=== PATIENT | female | born 1940 | race Caucasian/White ===

== ENCOUNTER 2017-08-16 14:43 | Inpatient (IN) ==
[2017-08-16 15:35] LABS: URINE SOURCE VOIDED
[2017-08-16 15:35] LABS: MANUAL DIFF NEEDED? NO
--- NOTE | 2017-08-16 15:35 | Diag Imaging Result Doc PS360 ---
EXAM: ABDOMEN FLAT/UPRIGHT HISTORY: ABD PAIN / PANCREATITIS TECHNIQUE: Two views COMPARISON: None. FINDINGS: No free air beneath the diaphragm. Air-filled loops of bowel mid abdomen. No organomegaly. Prominent vascular calcifications. IMPRESSION: No acute abnormality Electronically signed by Bruno Perla 08/16/2017 3:33 PM
--- NOTE | 2017-08-16 15:48 | Diag Imaging Result Doc PS360 ---
EXAM: CT ABDOMEN/PELVIS W/O CONTRAST HISTORY: ABD PAIN / PANCREATITIS TECHNIQUE: CT abdomen and pelvis without contrast. Dose reduction protocol. COMPARISON: 03/03/2015 FINDINGS: There is an anterior abdominal wall hernia on the current exam which was not previously present. This measures 4 cm in diameter and contains a portion of the transverse colon. Questionable mild thickening to the wall of the transverse colon at the hernia site. The proximal loop is distended with air and fluid where is the distal to this the transverse colon is not distended. There are several stones within the gallbladder. No adjacent inflammation. No inflammation about the pancreas. No pancreatic calcifications or pseudocyst. No focal hepatic or splenic normality identified on this noncontrasted study. Normal adrenal glands. There are several nonobstructing renal stones. No hydronephrosis. There are bilateral renal cysts. The largest arises from the lower pole on the left measuring 3.6 cm. Prominent atherosclerosis. The urinary bladder is distended and appears normal. Normal uterus. No pelvic mass. Normal appendix. No abscess. IMPRESSION: 1.Development of an upper midline anterior abdominal wall hernia containing a portion of transverse colon which may be incarcerated and causing a partial obstruction. 2.No CT evidence of pancreatitis 3.Cholelithiasis 4.Bilateral nephrolithiasis as well as scattered renal cysts 5.Severe atherosclerosis 6.A preliminary report was called to Dr. Alvarez. Electronically signed by Bruno Perla 08/16/2017 3:46 PM
[2017-08-16 16:24] LABS: BASO% 0.2 % (0.0-0.8); EOS# 0.19 X1000 (0.0-0.7); EOS% 1.6 % (0.0-10.0); HEMATOCRIT 44.7 % (37.0-47.0); HEMOGLOBIN 14.9 g/dL (12.0-16.0); IMM GRAN# 0.02 X1000 (0.0-0.04); IMM GRAN% 0.2 % (0.0-0.5); LYMPH# 1.57 X1000 (1.2-3.4); LYMPH% 13.3 % (20.5-51.1); MCH 31.4 PG (27-31); MCHC 33.3 g/dL (33-37); MCV 94.1 FL (81-99); MONO% 4.2 % (1.7-9.3); MPV 8.9 FL (7.4-10.4); NEUT% 80.5 % (42.2-75.2); PLT 285 X1000 (130-400); RBC 4.75 XMIL (4.2-5.4)
[2017-08-16 16:31] LABS: BILIRUBIN URINE NEGATIVE (NEGATIVE); BLOOD URINE NEGATIVE (NEGATIVE); CLARITY CLEAR (CLEAR); COLOR YELLOW; GLUCOSE URINE NEGATIVE (NEGATIVE); LEUKOCYTES URINE TRACE (NEGATIVE); NITRITE URINE NEGATIVE (NEGATIVE); PH URINE 5.5; PROTEIN URINE NEGATIVE (NEGATIVE); SP GRAVITY URINE 1.015; UROBILINOGEN URINE 0.2 EU/dL (0.2-1.0)
[2017-08-16 16:34] LABS: URINE CAST GRANULAR PRESENT /LPF; URINE EPITHELIAL CELLS <10 /HPF (<10); URINE RBC <10 /HPF (<10); URINE SMALL ROUND CELLS TRANSITIONAL PRESENT; URINE WBC <10 /HPF (<10)
[2017-08-16 16:46] LABS: AGAP 15; ALBUMIN 4.3 g/dL (3.5-5.0); ALKALINE PHOSPHATASE 76 U/L (32-104); AMYLASE 63 U/L (20-200); BUN 23 mg/dL (8-22); CALCIUM 8.9 mg/dL (8.8-10.2); CHLORIDE 97 mmol/L (98-107); COSMO 277; GOT 12 U/L (10-30); GPT 9 U/L (10-36); LIPASE 12 U/L (13-60); POTASSIUM 3.6 mmol/L (3.5-5.1); SODIUM 137 mmol/L (136-145); TCO2 25 mmol/L (25-35); TOTAL BILIRUBIN 0.32 mg/dL (0.20-1.00); TOTAL PROTEIN 7.7 g/dL (6.3-8.3)
[2017-08-16] MEDS ORDERED: ZOFRAN IV PRN (17:51)
[2017-08-16] MEDS ORDERED: NUBAIN IV PRN (17:51)
[2017-08-16 18:44] LABS: INR 1.03; PROTIME 10.8 Seconds (9.2-11.7); PTT 26.6 Seconds (22.0-36.0)
[2017-08-16] MEDS: NS 1,000 ML IV SCH (18:47)
[2017-08-16] MEDS: PROTONIX IV SCH (18:47)
[2017-08-16] MEDS: SODIUM CHLORIDE 0.9% INJ SCH (18:47)
[2017-08-16] MEDS: DUONEB (A & A) INH SCH ×2 (19:00→22:33)
[2017-08-16] MEDS ORDERED: KLOR-CON PO ONE (19:06)
[2017-08-16] MEDS: PEPCID PO SCH (20:41)
[2017-08-16] MEDS: VALIUM PO SCH (20:42)
[2017-08-16] MEDS: LOTENSIN PO SCH (20:42)
--- NOTE | 2017-08-16 21:31 | EKG Report ---
Test Performed on : 08/16/2017 6:12:43 PM Test Reason : abd pain Blood Pressure : / mmHG Vent. Rate : 051 BPM Atrial Rate : 051 BPM P-R Int : 178 ms QRS Dur : 104 ms QT Int : 482 ms P-R-T Axes : 041 -11 -04 degrees QTc Int : 444 ms Sinus bradycardia. 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
[2017-08-16] MEDS: HUMALOG SUBQ SCH (21:53)
[2017-08-16] MEDS: ACCOLATE PO SCH (21:57)
[2017-08-17] MEDS: DILAUDID IV PRN ×4 (00:08→23:40)
[2017-08-17] MEDS: NS 1,000 ML IV SCH ×2 (00:09→05:09)
[2017-08-17] MEDS: DUONEB (A & A) INH SCH ×6 (03:26→22:49)
[2017-08-17 07:30] LABS: MANUAL DIFF NEEDED? NO
[2017-08-17 07:33] LABS: BASO% 0.3 % (0.0-0.8); EOS# 0.09 X1000 (0.0-0.7); EOS% 0.9 % (0.0-10.0); HEMATOCRIT 42.2 % (37.0-47.0); IMM GRAN# 0.02 X1000 (0.0-0.04); IMM GRAN% 0.2 % (0.0-0.5); LYMPH# 1.88 X1000 (1.2-3.4); LYMPH% 18.8 % (20.5-51.1); MCH 31.5 PG (27-31); MCHC 33.2 g/dL (33-37); MONO# 0.57 X1000 (0.11-0.59); MONO% 5.7 % (1.7-9.3); MPV 8.8 FL (7.4-10.4); NEUT% 74.1 % (42.2-75.2); PLT 241 X1000 (130-400); RBC 4.44 XMIL (4.2-5.4)
[2017-08-17 08:09] LABS: AGAP 15; ALBUMIN 3.4 g/dL (3.5-5.0); ALKALINE PHOSPHATASE 63 U/L (32-104); BUN 21 mg/dL (8-22); CALCIUM 8.4 mg/dL (8.8-10.2); CHLORIDE 101 mmol/L (98-107); COSMO 276; GOT 11 U/L (10-30); GPT 6 U/L (10-36); SODIUM 137 mmol/L (136-145); TCO2 21 mmol/L (25-35); TOTAL BILIRUBIN 0.43 mg/dL (0.20-1.00); TOTAL PROTEIN 6.2 g/dL (6.3-8.3)
[2017-08-17 08:22] LABS: POTASSIUM 4.9 mmol/L (3.5-5.1)
[2017-08-17] MEDS: LIPITOR PO SCH (08:58)
[2017-08-17] MEDS: LASIX PO SCH (08:58)
[2017-08-17] MEDS: IMDUR PO SCH (08:58)
[2017-08-17] MEDS: ARICEPT PO SCH (08:58)
[2017-08-17] MEDS: PEPCID PO SCH ×2 (08:58→22:02)
[2017-08-17] MEDS: TOPROL XL PO SCH (08:58)
[2017-08-17] MEDS: CELEXA PO SCH (08:58)
[2017-08-17] MEDS: MYSOLINE PO SCH (08:58)
[2017-08-17] MEDS: ACCOLATE PO SCH ×2 (08:59→22:01)
[2017-08-17] MEDS: LOTENSIN PO SCH ×2 (08:59→22:02)
[2017-08-17] MEDS ORDERED: PLAVIX PO SCH (09:00)
[2017-08-17] MEDS: VALIUM PO SCH ×2 (09:02→22:01)
--- NOTE | 2017-08-17 09:49 | Diag Imaging Result Doc PS360 ---
EXAM: ABDOMEN FLAT/UPRIGHT HISTORY: pain TECHNIQUE: Flat and upright abdomen COMMENT: There are extensive vascular calcifications. There may be calcifications in the renal arteries particularly on the left. The bowel gas pattern is unremarkable. Compared to 08/16/2017 there is been no appreciable change. IMPRESSION: Nonspecific abdomen. Electronically signed by Tomás Castaneda 08/17/2017 9:46 AM
[2017-08-17] MEDS: HUMALOG SUBQ SCH ×4 (13:59→23:03)
[2017-08-17] MEDS ORDERED: KEFZOL 1 GM/D5W 1 GM/50 ML IVPB IV ONE (16:28)
[2017-08-17] MEDS ORDERED: MIRALAX PO ONE (16:30)
[2017-08-17] MEDS: NON-FORMULARY BULK MED INH SCH (16:58)
[2017-08-17] MEDS: NICODERM PATCH TD SCH (18:21)
[2017-08-17] MEDS: SODIUM CHLORIDE 0.9% INJ SCH (18:22)
[2017-08-17] MEDS: PROTONIX IV SCH (18:22)
[2017-08-18] MEDS: DUONEB (A & A) INH SCH ×6 (03:30→23:06)
[2017-08-18] MEDS: HUMALOG SUBQ SCH ×4 (06:34→23:41)
[2017-08-18] MEDS: HUMULIN 70/30 SUBQ SCH ×2 (06:35→18:09)
[2017-08-18] MEDS ORDERED: KEFZOL 1 GM/D5W 1 GM/50 ML IVPB IV ONE (07:00)
[2017-08-18 07:47] LABS: AGAP 14; ALKALINE PHOSPHATASE 70 U/L (32-104); BUN 14 mg/dL (8-22); CALCIUM 9.3 mg/dL (8.8-10.2); CHLORIDE 102 mmol/L (98-107); COSMO 284; GOT 11 U/L (10-30); GPT 7 U/L (10-36); POTASSIUM 3.9 mmol/L (3.5-5.1); SODIUM 141 mmol/L (136-145); TCO2 25 mmol/L (25-35); TOTAL BILIRUBIN 0.54 mg/dL (0.20-1.00); TOTAL PROTEIN 6.7 g/dL (6.3-8.3)
[2017-08-18] MEDS: DILAUDID IV PRN ×3 (08:44→18:01)
[2017-08-18] MEDS ORDERED: MARCAINE 0.25% PF ONE (10:02)
[2017-08-18] MEDS ORDERED: ZEMURON ONE (10:05)
[2017-08-18] MEDS ORDERED: FENTANYL ONE (10:05)
[2017-08-18] MEDS ORDERED: XYLOCAINE-MPF 2% ONE (10:05)
[2017-08-18] MEDS ORDERED: QUELICIN (DOSE) ONE (10:06)
[2017-08-18] MEDS: IMDUR PO SCH (10:08)
[2017-08-18] MEDS: ACCOLATE PO SCH ×2 (10:08→23:40)
[2017-08-18] MEDS: LASIX PO SCH (10:08)
[2017-08-18] MEDS: MYSOLINE PO SCH (10:08)
[2017-08-18] MEDS: LIPITOR PO SCH (10:08)
[2017-08-18] MEDS: VALIUM PO SCH ×2 (10:08→23:42)
[2017-08-18] MEDS: TOPROL XL PO SCH ×2 (10:08→18:48)
[2017-08-18] MEDS: NICODERM PATCH TD SCH (10:08)
[2017-08-18] MEDS: ARICEPT PO SCH (10:08)
[2017-08-18] MEDS: PEPCID PO SCH ×2 (10:08→23:42)
[2017-08-18] MEDS: CELEXA PO SCH (10:08)
[2017-08-18] MEDS: LOTENSIN PO SCH ×2 (10:08→23:41)
[2017-08-18] MEDS ORDERED: KEFZOL 1 GM/D5W 1 GM/50 ML IVPB ONE (10:09)
[2017-08-18] MEDS ORDERED: DIPRIVAN 1% ONE (10:13)
[2017-08-18] MEDS ORDERED: ZOFRAN ONE (11:26)
[2017-08-18] MEDS ORDERED: DECADRON ONE (11:26)
[2017-08-18] MEDS ORDERED: NEOSTIGMINE ONE (11:34)
[2017-08-18] MEDS ORDERED: ROBINUL ONE (11:34)
[2017-08-18] MEDS: NON-FORMULARY BULK MED INH SCH (12:05)
[2017-08-18] MEDS: DILAUDID ONE (13:24)
[2017-08-18] MEDS ORDERED: INSULIN PEN NEEDLES ONE (13:28)
[2017-08-18] MEDS ORDERED: NORCO-7.5 PO PRN (14:04)
[2017-08-18] MEDS: PROTONIX IV SCH (18:11)
[2017-08-18] MEDS: SODIUM CHLORIDE 0.9% INJ SCH (18:11)
[2017-08-18] MEDS ORDERED: NS 500 ML ONE (23:12)
[2017-08-18] MEDS ORDERED: NS 500 ML IV ONE (23:16)
[2017-08-18] MEDS ORDERED: VANCOMYCIN IV PER PHARMACY MISC SCH (23:30)
[2017-08-18 23:31] LABS: BE -4.3 mmoll (-3.0-3.0); BLOOD TYPE ARTERIAL; DRAW SITE R BRACHIAL; PO2(98.6) 51 mmHg (60-100); SAMPLE BLOOD; SAO2 89.3 % (95.0-100.0); THB 14.1 g/dL (11.5-17.4); pH(98.6) 7.26 (7.35-7.45)
[2017-08-18 23:32] LABS: MODALITY CANNULA; PCO2(98.6) 52 mmHg (35-45)
[2017-08-19] MEDS ORDERED: VANCOMYCIN 1,800 MG in NS 250 ML IV ONE ×2
[2017-08-19 00:01] LABS: BASO% 0.1 % (0.0-0.8); EOS# 0.01 X1000 (0.0-0.7); EOS% 0.1 % (0.0-10.0); HEMATOCRIT 42.7 % (37.0-47.0); HEMOGLOBIN 13.7 g/dL (12.0-16.0); IMM GRAN# 0.03 X1000 (0.0-0.04); IMM GRAN% 0.2 % (0.0-0.5); LYMPH# 0.87 X1000 (1.2-3.4); LYMPH% 5.7 % (20.5-51.1); MANUAL DIFF NEEDED? YES; MCH 31.6 PG (27-31); MCHC 32.1 g/dL (33-37); MCV 98.4 FL (81-99); MONO# 1.02 X1000 (0.11-0.59); MONO% 6.6 % (1.7-9.3); MPV 8.8 FL (7.4-10.4); NEUT% 87.3 % (42.2-75.2); PLT 253 X1000 (130-400); RBC 4.34 XMIL (4.2-5.4)
[2017-08-19 00:13] LABS: LYMPHS 3 % (21-51); MONO 5 % (1-9)
[2017-08-19 00:23] LABS: ALBUMIN 3.7 g/dL (3.5-5.0); CALCIUM 8.2 mg/dL (8.8-10.2); POTASSIUM 4.9 mmol/L (3.5-5.1); TOTAL BILIRUBIN 0.47 mg/dL (0.20-1.00); TOTAL PROTEIN 6.7 g/dL (6.3-8.3)
[2017-08-19] MEDS: ZOSYN 3.375 GM in NS 50 ML IV SCH ×5 (00:42→23:09)
[2017-08-19] MEDS: DILAUDID IV PRN (01:41)
[2017-08-19] MEDS: DUONEB (A & A) INH SCH ×6 (02:50→23:25)
[2017-08-19] MEDS: OFIRMEV 1000 MG/ISOTONIC SOLN 1,000 MG/100 ML BOTTLE IV PRN ×3 (03:18→19:42)
[2017-08-19 05:00] LABS: BE -4.4 mmoll (-3.0-3.0); BLOOD TYPE ARTERIAL; DRAW SITE R BRACHIAL; METHB 1.7 % (0.0-1.5); O2(CT) 16.7 mL/dL (15.0-23.0); PCO2(98.6) 48 mmHg (35-45); PO2(98.6) 74 mmHg (60-100); SAMPLE BLOOD; SAO2 96.5 % (95.0-100.0); THB 12.8 g/dL (11.5-17.4); pH(98.6) 7.28 (7.35-7.45)
[2017-08-19 05:01] LABS: MODALITY BI PAP
[2017-08-19] MEDS: HUMALOG SUBQ SCH (06:22)
[2017-08-19] MEDS: NON-FORMULARY BULK MED INH SCH (07:31)
[2017-08-19] MEDS: DILAUDID ONE (07:32)
[2017-08-19 08:03] LABS: ALBUMIN 3.4 g/dL (3.5-5.0); POTASSIUM 4.5 mmol/L (3.5-5.1); TOTAL BILIRUBIN 0.49 mg/dL (0.20-1.00); TOTAL PROTEIN 6.2 g/dL (6.3-8.3)
[2017-08-19] MEDS: ARICEPT PO SCH (08:46)
[2017-08-19] MEDS: ACCOLATE PO SCH (08:46)
[2017-08-19] MEDS: IMDUR PO SCH (08:47)
[2017-08-19] MEDS: LIPITOR PO SCH (08:47)
[2017-08-19] MEDS: LASIX PO SCH (08:47)
[2017-08-19] MEDS: LOTENSIN PO SCH (08:47)
[2017-08-19] MEDS: MYSOLINE PO SCH (08:48)
[2017-08-19] MEDS: PEPCID PO SCH (08:49)
[2017-08-19] MEDS: VALIUM PO SCH (08:51)
[2017-08-19] MEDS: TOPROL XL PO SCH (08:51)
[2017-08-19] MEDS ORDERED: CELEXA PO SCH (09:00)
[2017-08-19] MEDS: HUMULIN 70/30 SUBQ SCH (09:25)
[2017-08-19] MEDS: NICODERM PATCH TD SCH (09:29)
[2017-08-19] MEDS: LOPRESSOR IV SCH ×3 (09:29→19:44)
[2017-08-19 09:38] LABS: URINE MICRO REVIEW NEEDED? NO; URINE SOURCE CATH
[2017-08-19 09:41] LABS: BILIRUBIN URINE NEGATIVE (NEGATIVE); BLOOD URINE SMALL (NEGATIVE); COLOR YELLOW; GLUCOSE URINE TRACE mg/dL (NEGATIVE); LEUKOCYTES URINE MODERATE (NEGATIVE); NITRITE URINE NEGATIVE (NEGATIVE); PH URINE 5.5; PROTEIN URINE 30 mg/dL (NEGATIVE); SP GRAVITY URINE 1.019; TURBIDITY URINE HAZY (CLEAR); UROBILINOGEN URINE NORMAL (NORMAL)
[2017-08-19 09:42] LABS: UR EPITHELIAL CELLS <10 /HPF (<10); URINE BACTERIA NEGATIVE /HPF; URINE CULTURE NEEDED? YES; URINE RBC <10 /HPF (<10)
--- NOTE | 2017-08-19 09:50 | Diag Imaging Result Doc PS360 ---
EXAM: CHEST-PORTABLE INDICATION: resp. Distress TECHNIQUE: One view COMPARISON: 04/02/2015 FINDINGS: Inspiration is suboptimal. The lungs are grossly clear. There is no discrete pleural fluid collection or pneumothorax. The cardiomediastinal silhouette and central vasculature are grossly unremarkable. IMPRESSION: Low lung volumes but no definite acute pathology, otherwise, by plain radiograph. Electronically signed by Shade Norris 08/19/2017 9:48 AM
[2017-08-19] MEDS: HUMULIN R SUBQ SCH ×3 (11:29→20:41)
[2017-08-19 14:18] LABS: CK INDEX 1.3 (0.0-2.5); CK-MB 13.31 ng/mL (0.0-5.0)
[2017-08-19] MEDS: HEPARIN SUBQ SCH ×2 (14:30→20:40)
[2017-08-19] MEDS: SODIUM CHLORIDE 0.9% INJ SCH (17:34)
[2017-08-19] MEDS: PROTONIX IV SCH (17:34)
[2017-08-19 18:54] LABS: CK-MB 10.54 ng/mL (0.0-5.0)
[2017-08-20] MEDS ORDERED: VANCOMYCIN 1,250 MG in NS 250 ML IV SCH (01:00)
[2017-08-20] MEDS: LOPRESSOR IV SCH ×4 (03:23→21:11)
[2017-08-20] MEDS: DUONEB (A & A) INH SCH ×6 (03:30→23:33)
[2017-08-20] MEDS: ZOSYN 3.375 GM in NS 50 ML IV SCH ×4 (05:28→23:55)
[2017-08-20] MEDS: HEPARIN SUBQ SCH ×3 (06:21→21:11)
[2017-08-20] MEDS: HUMULIN R SUBQ SCH ×4 (06:49→21:00)
[2017-08-20] MEDS: NICODERM PATCH TD SCH (08:06)
[2017-08-20] MEDS ORDERED: BLISTEX MEDICATED BERRY LIP BALM TOP PRN (08:11)
[2017-08-20 08:44] LABS: CK INDEX 0.9 (0.0-2.5); CK-MB 14.61 ng/mL (0.0-5.0)
[2017-08-20 10:01] LABS: AGAP 15; ALBUMIN 3.3 g/dL (3.5-5.0); ALKALINE PHOSPHATASE 59 U/L (32-104); BUN 16 mg/dL (8-22); CALCIUM 8.6 mg/dL (8.8-10.2); CHLORIDE 101 mmol/L (98-107); COSMO 285; GOT 36 U/L (10-30); GPT 12 U/L (10-36); POTASSIUM 4.2 mmol/L (3.5-5.1); SODIUM 140 mmol/L (136-145); TCO2 24 mmol/L (25-35); TOTAL PROTEIN 6.2 g/dL (6.3-8.3)
[2017-08-20 10:09] LABS: BASO% 0.3 % (0.0-0.8); EOS# 0.11 X1000 (0.0-0.7); EOS% 0.9 % (0.0-10.0); HEMATOCRIT 40.1 % (37.0-47.0); HEMOGLOBIN 12.8 g/dL (12.0-16.0); IMM GRAN# 0.02 X1000 (0.0-0.04); IMM GRAN% 0.2 % (0.0-0.5); LYMPH# 0.84 X1000 (1.2-3.4); LYMPH% 7.2 % (20.5-51.1); MANUAL DIFF NEEDED? YES; MCH 31.3 PG (27-31); MCHC 31.9 g/dL (33-37); MONO# 0.33 X1000 (0.11-0.59); MONO% 2.8 % (1.7-9.3); MPV 9.4 FL (7.4-10.4); NEUT% 88.6 % (42.2-75.2); PLT 198 X1000 (130-400); RBC 4.09 XMIL (4.2-5.4)
[2017-08-20] MEDS: ASPIRIN PR SCH (10:51)
[2017-08-20 12:01] LABS: EOS 4 % (1-10); LYMPHS 6 % (21-51); MONO 2 % (1-9)
--- NOTE | 2017-08-20 12:26 | ECHO REPORT ---
ORDER DATE: 08/19/2017 INTERPRETING PHYSICIAN: Dr. Golden REQUESTING PHYSICIAN: Dr. Alvarez is her primary doctor, and Dr. Crawley is covering for him. CLINICAL INDICATIONS: This is a 77-year-old female status post abdominal surgery, laparotomy, bowel obstruction. Definity was used to opacify the left ventricle and better assess LV function. M-MODE MEASUREMENTS: Right ventricle: 3.3 cm. Left ventricle end diastole: 4.5 cm. Left ventricle end systole: 3.5 cm. Posterior wall: 0.9 cm. Interventricular septum: 1.1 cm. Left atrium: 3.3 cm. Aortic root: cm. SUMMARY OF 2-DIMENSIONAL IMAGIN. Left ventricular function is mildly impaired, visually is in the order of 50% . 2. The true apex is dyskinetic. The distal septal wall, the true apex and the distal lateral wall are all akinetic to dyskinetic. This was well demonstrated by administration of intravenous Definity. 3. The left atrium is not dilated. 4. The right ventricle appears to be normal in size and function. 5. Mitral valve shows mild degree of regurgitation. 6. Pulse wave Doppler of mitral inflow shows reversal of the E and A wave. 7. Tissue Doppler of septal and lateral mitral annulus averages 5.5 cm. That indicates impaired left ventricular relaxation. 8. Tricuspid valve shows mild degree of regurgitation. 9. The pulmonary pressure is elevated and is estimated at 75 mmHg. 10.Pulmonic valve looks normal. 11.The color flow mapping of the mitral valve indicates degree of regurgitation. 12.The aortic valve opens normally with mild degree of regurgitation. 13.There is no pericardial effusion, mass or thrombus. CONCLUSIONS: This echocardiographic study shows: 1. Mildly impaired left ventricular systolic function. Ejection fraction is estimated at 45% with posterior wall hypokinesis, basal inferior hypokinesis and akinesis to dyskinesis of the apical septum ,the distal lateral wall and the true apex. That would be consistent with a new ischemic area involving the territory of the mid- distal LAD . evaluate the left ventricular contractility. 2. There is impaired left ventricular relaxation. 3. There is significant pulmonary hypertension estimated at 75 mmHg. 4. The aortic, mitral and tricuspid valves showed very mild degree of regurgitation. Clinical correlation is strongly recommended. cc: MD Lisa Wiley MD Bharat K. Vakharia, MD [facility]
[2017-08-20] MEDS: DILAUDID IV PRN (13:57)
[2017-08-20] MEDS: PROTONIX IV SCH (17:54)
[2017-08-20] MEDS: SODIUM CHLORIDE 0.9% INJ SCH (17:54)
[2017-08-20] MEDS: VANCOMYCIN 1,000 MG in NS 250 ML IV SCH (23:55)
[2017-08-21] MEDS: DUONEB (A & A) INH SCH ×6 (02:56→23:13)
[2017-08-21] MEDS: LOPRESSOR IV SCH ×4 (03:30→20:30)
[2017-08-21] MEDS: ZOSYN 3.375 GM in NS 50 ML IV SCH ×4 (04:39→21:59)
[2017-08-21] MEDS: HEPARIN SUBQ SCH ×3 (06:00→20:31)
[2017-08-21] MEDS: HUMULIN R SUBQ SCH ×4 (06:24→20:28)
--- NOTE | 2017-08-21 06:44 | EKG Report ---
Test Performed on : 08/19/2017 02:23:37 AM Test Reason : TACHYCARDIA Blood Pressure : / mmHG Vent. Rate : 121 BPM Atrial Rate : 121 BPM P-R Int : 176 ms QRS Dur : 094 ms QT Int : 306 ms P-R-T Axes : 060 -21 046 degrees QTc Int : 434 ms Sinus tachycardia. Inferior infarct (cited on or before 02-APR-2015) Nonspecific ST abnormality Cannot rule out Anterior infarct (cited on or before 02-APR-2015) Abnormal ECG When compared with ECG of 19-AUG-2017 02:05, (Unconfirmed) ST less elevated in Inferior leads Confirmed by Paco Hawkins MD ([id number]) on 08/21/2017 7:59:06 AM
--- NOTE | 2017-08-21 06:44 | EKG Report ---
Test Performed on : 08/19/2017 12:50:31 PM Test Reason : No Order in [place] Blood Pressure : / mmHG Vent. Rate : 087 BPM Atrial Rate : 089 BPM P-R Int : 000 ms QRS Dur : 096 ms QT Int : 334 ms P-R-T Axes : 000 011 083 degrees QTc Int : 401 ms Normal sinus rhythm. Inferior infarct (cited on or before 02-APR-2015) Cannot rule out ACUTE ND / STEMI Consider right ventricular involvement in acute inferior infarct Nonspecific T wave abnormality Lateral leads Abnormal ECG When compared with ECG of 19-AUG-2017 02:23, (Unconfirmed) Nonspecific T wave abnormality now evident in Lateral leads Confirmed by Ross MCDONALD, Paco ([id number]) on 08/21/2017 8:04:33 AM
--- NOTE | 2017-08-21 06:45 | EKG Report ---
Test Performed on : 08/20/2017 07:20:03 AM Test Reason : No Order in [employer] Blood Pressure : / mmHG Vent. Rate : 080 BPM Atrial Rate : 080 BPM P-R Int : 162 ms QRS Dur : 096 ms QT Int : 428 ms P-R-T Axes : 050 012 156 degrees QTc Int : 493 ms Normal sinus rhythm. Inferior infarct (cited on or before 02-APR-2015) ST \T\ Marked T wave abnormality, consider anterolateral ischemia Abnormal ECG When compared with ECG of 19-AUG-2017 12:50, (Unconfirmed) Significant changes have occurred Confirmed by Geraldo MCDONALD, Jose Stevens ([id number]) on 08/21/2017 5:00:00 PM
--- NOTE | 2017-08-21 06:45 | EKG Report ---
Test Performed on : 08/20/2017 09:31:35 AM Test Reason : No Order in [place] Blood Pressure : / mmHG Vent. Rate : 082 BPM Atrial Rate : 082 BPM P-R Int : 160 ms QRS Dur : 102 ms QT Int : 444 ms P-R-T Axes : 049 -18 152 degrees QTc Int : 518 ms Normal sinus rhythm. Inferior infarct (cited on or before 02-APR-2015) Anterior infarct , age undetermined ST \T\ Marked T wave abnormality, consider lateral ischemia Prolonged QT Abnormal ECG When compared with ECG of 20-AUG-2017 07:20, (Unconfirmed) No significant change was found Confirmed by Geraldo MCDONALD, Jose Stevens ([id number]) on 08/21/2017 5:00:05 PM
[2017-08-21 07:31] LABS: MANUAL DIFF NEEDED? NO
[2017-08-21 07:33] LABS: BASO% 0.3 % (0.0-0.8); EOS# 0.12 X1000 (0.0-0.7); EOS% 1.1 % (0.0-10.0); HEMATOCRIT 37.1 % (37.0-47.0); IMM GRAN# 0.02 X1000 (0.0-0.04); IMM GRAN% 0.2 % (0.0-0.5); LYMPH# 1.46 X1000 (1.2-3.4); LYMPH% 13.4 % (20.5-51.1); MCH 31.3 PG (27-31); MCHC 32.3 g/dL (33-37); MCV 96.9 FL (81-99); MONO% 7.3 % (1.7-9.3); NEUT% 77.7 % (42.2-75.2); PLT 208 X1000 (130-400); RBC 3.83 XMIL (4.2-5.4)
--- NOTE | 2017-08-21 07:35 | EKG Report ---
Test Performed on : 08/21/2017 07:01:06 AM Test Reason : subendocardial ischemia/non ST [place] Blood Pressure : / mmHG Vent. Rate : 078 BPM Atrial Rate : 078 BPM P-R Int : 144 ms QRS Dur : 104 ms QT Int : 446 ms P-R-T Axes : -06 -04 171 degrees QTc Int : 508 ms Normal sinus rhythm. Inferior infarct (cited on or before 02-APR-2015) Marked T wave abnormality, consider anterolateral ischemia Abnormal ECG When compared with ECG of 20-AUG-2017 09:31, (Unconfirmed) No significant change was found Confirmed by Geraldo MCDONALD, Jose Stevens ([id number]) on 08/21/2017 5:00:40 PM
[2017-08-21 07:54] LABS: INR 1.04
[2017-08-21] MEDS ORDERED: NICODERM PATCH TD SCH (08:02)
[2017-08-21] MEDS ORDERED: NS 250 ML ONE (08:05)
[2017-08-21 08:07] LABS: AGAP 13; ALBUMIN 3.4 g/dL (3.5-5.0); ALKALINE PHOSPHATASE 57 U/L (32-104); BUN 15 mg/dL (8-22); CALCIUM 8.8 mg/dL (8.8-10.2); CHLORIDE 101 mmol/L (98-107); COSMO 283; GOT 22 U/L (10-30); GPT 11 U/L (10-36); POTASSIUM 4.1 mmol/L (3.5-5.1); SODIUM 140 mmol/L (136-145); TCO2 26 mmol/L (25-35); TOTAL BILIRUBIN 0.53 mg/dL (0.20-1.00); TOTAL PROTEIN 6.8 g/dL (6.3-8.3)
[2017-08-21 08:26] LABS: CK PROFILE 618 U/L (24-173)
[2017-08-21 08:42] LABS: CK INDEX 1.1 (0.0-2.5); CK-MB 6.63 ng/mL (0.0-5.0)
[2017-08-21] MEDS: ASPIRIN PR SCH (09:45)
[2017-08-21] MEDS: APRESOLINE PO SCH ×3 (09:45→16:18)
[2017-08-21] MEDS: ISORDIL PO SCH ×3 (09:45→16:18)
[2017-08-21] MEDS: NICODERM PATCH TD SCH (12:19)
[2017-08-21] MEDS: SODIUM CHLORIDE 0.9% INJ SCH (17:10)
[2017-08-21] MEDS: PROTONIX IV SCH (17:10)
[2017-08-22] MEDS: LOPRESSOR IV SCH ×4 (02:06→20:38)
[2017-08-22] MEDS: DUONEB (A & A) INH SCH ×6 (02:45→23:20)
[2017-08-22] MEDS: HEPARIN SUBQ SCH ×3 (04:39→20:39)
[2017-08-22] MEDS: ZOSYN 3.375 GM in NS 50 ML IV SCH ×4 (04:39→23:26)
[2017-08-22] MEDS: DILAUDID IV PRN ×2 (06:19→17:52)
[2017-08-22] MEDS: HUMULIN R SUBQ SCH ×4 (06:20→20:39)
--- NOTE | 2017-08-22 06:37 | EKG Report ---
Test Performed on : 08/22/2017 05:43:20 AM Test Reason : subendocardial ischemia/non ST [place] Blood Pressure : / mmHG Vent. Rate : 072 BPM Atrial Rate : 072 BPM P-R Int : 154 ms QRS Dur : 096 ms QT Int : 454 ms P-R-T Axes : 024 006 118 degrees QTc Int : 497 ms Normal sinus rhythm. with sinus arrhythmia. Inferior infarct (cited on or before 02-APR-2015) Cannot rule out Anterior infarct , age undetermined T wave abnormality, consider lateral ischemia Abnormal ECG When compared with ECG of 21-AUG-2017 07:01, T wave inversion less evident in Lateral leads Confirmed by Geraldo MCDONALD, Jose Stevens ([id number]) on 08/23/2017 9:57:34 AM
[2017-08-22] MEDS: ISORDIL PO SCH ×3 (08:50→17:52)
[2017-08-22] MEDS: APRESOLINE PO SCH ×3 (08:50→17:52)
[2017-08-22] MEDS: ASPIRIN PO SCH (08:50)
[2017-08-22] MEDS: NICODERM PATCH TD SCH (08:50)
[2017-08-22] MEDS: SODIUM CHLORIDE 0.9% INJ SCH (17:52)
[2017-08-22] MEDS: PROTONIX IV SCH (17:52)
[2017-08-22] MEDS: VANCOMYCIN 1,000 MG in NS 250 ML IV SCH (23:27)
[2017-08-23] MEDS: DUONEB (A & A) INH SCH ×6 (03:25→23:52)
[2017-08-23] MEDS: LOPRESSOR IV SCH ×4 (04:44→22:28)
[2017-08-23 04:59] LABS: MANUAL DIFF NEEDED? NO
[2017-08-23 05:02] LABS: BASO% 0.4 % (0.0-0.8); EOS# 0.38 X1000 (0.0-0.7); HEMOGLOBIN 11.5 g/dL (12.0-16.0); IMM GRAN# 0.05 X1000 (0.0-0.04); IMM GRAN% 0.5 % (0.0-0.5); LYMPH# 1.25 X1000 (1.2-3.4); LYMPH% 13.3 % (20.5-51.1); MCH 31.4 PG (27-31); MCHC 32.9 g/dL (33-37); MCV 95.6 FL (81-99); MONO# 0.91 X1000 (0.11-0.59); MONO% 9.7 % (1.7-9.3); MPV 10.2 FL (7.4-10.4); NEUT% 72.1 % (42.2-75.2); PLT 129 X1000 (130-400); RBC 3.66 XMIL (4.2-5.4)
[2017-08-23 05:02] LABS: ALLEN TEST YES; BE 2.8 mmoll (-3.0-3.0); BLOOD TYPE ARTERIAL; DRAW SITE R RADIAL; METHB 1.4 % (0.0-1.5); PCO2(98.6) 34 mmHg (35-45); PO2(98.6) 152 mmHg (60-100); SAMPLE BLOOD; SAO2 99.4 % (95.0-100.0); THB 11.6 g/dL (11.5-17.4); pH(98.6) 7.49 (7.35-7.45)
[2017-08-23 05:03] LABS: MODALITY CANNULA
[2017-08-23 05:26] LABS: AGAP 15; ALBUMIN 3.1 g/dL (3.5-5.0); ALKALINE PHOSPHATASE 56 U/L (32-104); BUN 12 mg/dL (8-22); CHLORIDE 99 mmol/L (98-107); COSMO 280; GOT 14 U/L (10-30); GPT 12 U/L (10-36); MAGNESIUM 1.8 mg/dL (1.5-2.7); POTASSIUM 3.9 mmol/L (3.5-5.1); SODIUM 138 mmol/L (136-145); TCO2 24 mmol/L (25-35); TOTAL BILIRUBIN 0.65 mg/dL (0.20-1.00); TOTAL PROTEIN 6.2 g/dL (6.3-8.3)
[2017-08-23] MEDS: ZOSYN 3.375 GM in NS 50 ML IV SCH ×2 (06:10→12:30)
[2017-08-23] MEDS: HEPARIN SUBQ SCH ×3 (06:10→20:18)
[2017-08-23] MEDS: HUMULIN R SUBQ SCH ×4 (06:15→20:18)
--- NOTE | 2017-08-23 06:26 | EKG Report ---
Test Performed on : 08/23/2017 05:41:58 AM Test Reason : subendocardial ischemia/non ST [place] Blood Pressure : / mmHG Vent. Rate : 081 BPM Atrial Rate : 081 BPM P-R Int : 152 ms QRS Dur : 102 ms QT Int : 426 ms P-R-T Axes : 025 -23 055 degrees QTc Int : 494 ms Normal sinus rhythm. Minimal voltage criteria for LVH, may be normal variant Inferior infarct (cited on or before 02-APR-2015) T wave abnormality, consider anterolateral ischemia Abnormal ECG When compared with ECG of 22-AUG-2017 05:43, (Unconfirmed) No significant change was found Confirmed by Geraldo MCDONALD, Jose Stevens ([id number]) on 08/23/2017 10:06:09 AM
[2017-08-23] MEDS: APRESOLINE PO SCH ×3 (09:10→16:50)
[2017-08-23] MEDS: NICODERM PATCH TD SCH (09:10)
[2017-08-23] MEDS: ISORDIL PO SCH ×3 (09:11→16:50)
[2017-08-23] MEDS: ASPIRIN PO SCH (09:11)
[2017-08-23] MEDS: ATIVAN IV PRN (09:23)
[2017-08-23] MEDS: DILAUDID IV PRN (12:36)
[2017-08-23] MEDS: NORCO-10 PO PRN ×2 (15:21→22:27)
[2017-08-23] MEDS: PROTONIX IV SCH ×2 (16:50→17:27)
[2017-08-23] MEDS: SODIUM CHLORIDE 0.9% INJ SCH ×2 (16:51→17:26)
[2017-08-24] MEDS: DUONEB (A & A) INH SCH ×6 (03:53→22:53)
[2017-08-24] MEDS: NORCO-10 PO PRN ×3 (05:14→18:44)
[2017-08-24] MEDS: HEPARIN SUBQ SCH ×3 (05:15→20:21)
[2017-08-24] MEDS: LOPRESSOR IV SCH (05:15)
[2017-08-24] MEDS: HUMULIN R SUBQ SCH ×4 (06:25→20:23)
[2017-08-24] MEDS ORDERED: INSULIN PEN NEEDLES ONE (08:34)
[2017-08-24] MEDS ORDERED: TOPROL XL PO SCH (09:00)
[2017-08-24] MEDS: ISORDIL PO SCH ×3 (09:11→17:15)
[2017-08-24] MEDS: TOPROL XL PO SCH ×2 (09:11→20:22)
[2017-08-24] MEDS: ASPIRIN PO SCH (09:11)
[2017-08-24] MEDS: APRESOLINE PO SCH ×3 (09:11→17:15)
[2017-08-24] MEDS: LANTUS SUBQ SCH (09:12)
[2017-08-24] MEDS: ATIVAN IV PRN (09:18)
[2017-08-24] MEDS: NICODERM PATCH TD SCH (10:06)
[2017-08-24] MEDS: PROTONIX IV SCH (17:15)
[2017-08-24] MEDS: SODIUM CHLORIDE 0.9% INJ SCH (17:15)
[2017-08-25] MEDS: NORCO-10 PO PRN ×4 (00:32→23:03)
[2017-08-25] MEDS: DUONEB (A & A) INH SCH ×6 (03:09→22:42)
[2017-08-25 04:34] LABS: MANUAL DIFF NEEDED? NO
[2017-08-25 04:42] LABS: BASO% 0.2 % (0.0-0.8); EOS# 0.43 X1000 (0.0-0.7); EOS% 3.4 % (0.0-10.0); HEMATOCRIT 34.7 % (37.0-47.0); HEMOGLOBIN 11.4 g/dL (12.0-16.0); IMM GRAN# 0.07 X1000 (0.0-0.04); IMM GRAN% 0.6 % (0.0-0.5); LYMPH# 1.43 X1000 (1.2-3.4); LYMPH% 11.3 % (20.5-51.1); MCH 31.5 PG (27-31); MCHC 32.9 g/dL (33-37); MCV 95.9 FL (81-99); MONO# 0.97 X1000 (0.11-0.59); MONO% 7.6 % (1.7-9.3); MPV 9.6 FL (7.4-10.4); NEUT% 76.9 % (42.2-75.2); PLT 199 X1000 (130-400); RBC 3.62 XMIL (4.2-5.4)
[2017-08-25 05:07] LABS: AGAP 12; ALBUMIN 3.2 g/dL (3.5-5.0); ALKALINE PHOSPHATASE 70 U/L (32-104); BUN 11 mg/dL (8-22); CALCIUM 8.8 mg/dL (8.8-10.2); CHLORIDE 96 mmol/L (98-107); COSMO 277; GOT 20 U/L (10-30); GPT 22 U/L (10-36); POTASSIUM 3.7 mmol/L (3.5-5.1); SODIUM 136 mmol/L (136-145); TCO2 28 mmol/L (25-35); TOTAL BILIRUBIN 0.66 mg/dL (0.20-1.00); TOTAL PROTEIN 6.5 g/dL (6.3-8.3)
[2017-08-25] MEDS: HEPARIN SUBQ SCH ×3 (06:05→20:46)
[2017-08-25] MEDS: HUMULIN R SUBQ SCH ×4 (06:06→20:47)
[2017-08-25] MEDS ORDERED: POTASSIUM CHLORIDE 20% LIQUID PO ONE (07:26)
[2017-08-25] MEDS ORDERED: LASIX IV ONE (07:26)
[2017-08-25] MEDS: ATIVAN IV PRN ×2 (08:27→20:55)
[2017-08-25] MEDS: NICODERM PATCH TD SCH (08:28)
[2017-08-25] MEDS: ISORDIL PO SCH ×3 (08:28→17:00)
[2017-08-25] MEDS: TOPROL XL PO SCH ×2 (08:28→20:46)
[2017-08-25] MEDS: ALDACTONE PO SCH (08:28)
[2017-08-25] MEDS: LANTUS SUBQ SCH (08:29)
[2017-08-25] MEDS: APRESOLINE PO SCH ×3 (08:29→16:56)
[2017-08-25] MEDS: ASPIRIN PO SCH (08:29)
[2017-08-25] MEDS: MYCOSTATIN SUSP PO SCH ×4 (09:16→23:02)
[2017-08-25] MEDS: PROTONIX IV SCH (16:59)
[2017-08-25] MEDS: SODIUM CHLORIDE 0.9% INJ SCH (16:59)
[2017-08-26] MEDS: DUONEB (A & A) INH SCH ×6 (02:50→23:05)
[2017-08-26] MEDS: HUMULIN R SUBQ SCH ×4 (06:34→21:18)
[2017-08-26] MEDS: ATIVAN IV PRN ×2 (06:34→18:26)
[2017-08-26] MEDS: NORCO-10 PO PRN ×3 (06:34→18:27)
[2017-08-26] MEDS: HEPARIN SUBQ SCH ×3 (06:34→21:17)
--- NOTE | 2017-08-26 08:01 | Diag Imaging Result Doc PS360 ---
CHEST-PORTABLE - 08/26/2017 INDICATION: abnormal exam TECHNIQUE: COMPARISON: 08/19/2017 FINDINGS: There is a new right PICC line in good position with the catheter tip at the cavoatrial junction. Stable severely low lung volumes with central and bibasilar crowding. Grossly stable nonspecific atelectasis or infiltrates in the bases. Heart size remains top normal. IMPRESSION: New PICC line, otherwise no change from prior. Electronically signed by Vinicius Starkey 08/26/2017 7:58 AM
[2017-08-26] MEDS: APRESOLINE PO SCH ×3 (08:28→16:40)
[2017-08-26] MEDS: TOPROL XL PO SCH ×2 (08:28→21:17)
[2017-08-26] MEDS: LANTUS SUBQ SCH (08:28)
[2017-08-26] MEDS: ALDACTONE PO SCH (08:28)
[2017-08-26] MEDS: ASPIRIN PO SCH (08:28)
[2017-08-26] MEDS: NICODERM PATCH TD SCH (08:28)
[2017-08-26] MEDS: ISORDIL PO SCH ×3 (08:28→16:40)
[2017-08-26] MEDS: MYCOSTATIN SUSP PO SCH ×4 (08:29→21:19)
[2017-08-26] MEDS: PROTONIX IV SCH (17:02)
[2017-08-26] MEDS: SODIUM CHLORIDE 0.9% INJ SCH (17:02)
[2017-08-27] MEDS: NORCO-10 PO PRN ×4 (00:23→22:41)
[2017-08-27] MEDS: ATIVAN IV PRN ×3 (00:23→15:51)
[2017-08-27] MEDS: DUONEB (A & A) INH SCH ×6 (03:14→22:43)
[2017-08-27] MEDS: HUMULIN R SUBQ SCH ×4 (06:09→21:13)
[2017-08-27] MEDS: HEPARIN SUBQ SCH ×3 (06:09→21:04)
[2017-08-27] MEDS: ALDACTONE PO SCH (08:14)
[2017-08-27] MEDS: TOPROL XL PO SCH ×2 (08:14→21:04)
[2017-08-27] MEDS: ASPIRIN PO SCH (08:14)
[2017-08-27] MEDS: NICODERM PATCH TD SCH (08:14)
[2017-08-27] MEDS: MYCOSTATIN SUSP PO SCH ×4 (08:14→21:18)
[2017-08-27] MEDS: APRESOLINE PO SCH ×3 (08:14→16:11)
[2017-08-27] MEDS: ISORDIL PO SCH ×3 (08:14→16:11)
[2017-08-27] MEDS: LANTUS SUBQ SCH (08:16)
[2017-08-27] MEDS: SODIUM CHLORIDE 0.9% INJ SCH (16:06)
[2017-08-27] MEDS: PROTONIX IV SCH (16:06)
[2017-08-28] MEDS: DUONEB (A & A) INH SCH ×6 (02:44→23:23)
[2017-08-28] MEDS: NORCO-10 PO PRN ×3 (05:39→18:49)
[2017-08-28] MEDS: HUMULIN R SUBQ SCH ×5 (05:58→20:46)
[2017-08-28] MEDS: HEPARIN SUBQ SCH ×3 (05:58→20:39)
--- NOTE | 2017-08-28 07:40 | Diag Imaging Result Doc PS360 ---
EXAM: CHEST-PORTABLE INDICATION: sob TECHNIQUE: One view COMPARISON: 08/26/2017 FINDINGS: Right PICC line is in stable position. There is slightly better inspiration on the current study. Mild atelectasis and/or infiltrate at the lung bases has improved slightly. No new consolidation is identified. Cardiac silhouette is stable. IMPRESSION: Better inspiration and slight improvement of atelectasis and/or mild infiltrate at the lung bases. Electronically signed by Shade Norris 08/28/2017 7:38 AM
[2017-08-28 07:54] LABS: ALLEN TEST YES; BE 5.6 mmoll (-3.0-3.0); BLOOD TYPE ARTERIAL; DRAW SITE R RADIAL; MODALITY CANNULA; O2(CT) 17.2 mL/dL (15.0-23.0); PCO2(98.6) 45 mmHg (35-45); PO2(98.6) 64 mmHg (60-100); SAMPLE BLOOD; SAO2 95.2 % (95.0-100.0); THB 13.3 g/dL (11.5-17.4); pH(98.6) 7.44 (7.35-7.45)
[2017-08-28 08:11] LABS: MANUAL DIFF NEEDED? NO
[2017-08-28 08:16] LABS: BASO% 0.2 % (0.0-0.8); EOS# 0.37 X1000 (0.0-0.7); EOS% 3.5 % (0.0-10.0); LYMPH# 1.73 X1000 (1.2-3.4); LYMPH% 16.5 % (20.5-51.1); MCH 31.3 PG (27-31); MCHC 32.4 g/dL (33-37); MCV 96.9 FL (81-99); MONO# 0.79 X1000 (0.11-0.59); MONO% 7.6 % (1.7-9.3); MPV 9.5 FL (7.4-10.4); NEUT% 71.2 % (42.2-75.2); PLT 364 X1000 (130-400); RBC 3.51 XMIL (4.2-5.4)
[2017-08-28 08:41] LABS: AGAP 13; ALBUMIN 3.1 g/dL (3.5-5.0); ALKALINE PHOSPHATASE 109 U/L (32-104); BUN 14 mg/dL (8-22); CALCIUM 8.9 mg/dL (8.8-10.2); CHLORIDE 96 mmol/L (98-107); CK PROFILE 75 U/L (24-173); COSMO 278; GOT 18 U/L (10-30); GPT 26 U/L (10-36); MAGNESIUM 1.9 mg/dL (1.5-2.7); POTASSIUM 4.6 mmol/L (3.5-5.1); SODIUM 136 mmol/L (136-145); TCO2 27 mmol/L (25-35); TOTAL BILIRUBIN 0.42 mg/dL (0.20-1.00); TOTAL PROTEIN 6.6 g/dL (6.3-8.3)
[2017-08-28] MEDS: ASPIRIN PO SCH (10:00)
[2017-08-28] MEDS: ISORDIL PO SCH ×2 (10:00→20:39)
[2017-08-28] MEDS: ALDACTONE PO SCH (10:00)
[2017-08-28] MEDS: NICODERM PATCH TD SCH (10:01)
[2017-08-28] MEDS: APRESOLINE PO SCH ×2 (10:01→20:39)
[2017-08-28] MEDS: TOPROL XL PO SCH ×2 (10:01→20:39)
[2017-08-28] MEDS: LANTUS SUBQ SCH (10:01)
[2017-08-28] MEDS: MYCOSTATIN SUSP PO SCH ×4 (10:02→20:39)
[2017-08-28] MEDS ORDERED: APRESOLINE PO ONE (15:53)
[2017-08-28] MEDS ORDERED: ISORDIL PO ONE (15:53)
[2017-08-28] MEDS: SODIUM CHLORIDE 0.9% INJ SCH (16:36)
[2017-08-28] MEDS: PROTONIX IV SCH (16:36)
[2017-08-28] MEDS: ATIVAN IV PRN (17:41)
[2017-08-29] MEDS: NORCO-10 PO PRN ×4 (02:51→21:26)
[2017-08-29] MEDS: DUONEB (A & A) INH SCH ×6 (03:25→23:25)
[2017-08-29] MEDS ORDERED: ROCEPHIN 1 GM in NS 50 ML IV ONE (06:39)
[2017-08-29] MEDS: HUMULIN R SUBQ SCH ×4 (06:53→21:23)
[2017-08-29] MEDS: HEPARIN SUBQ SCH ×4 (06:53→21:22)
[2017-08-29] MEDS: APRESOLINE PO SCH ×3 (08:24→21:23)
[2017-08-29] MEDS: ISORDIL PO SCH ×3 (08:24→21:23)
[2017-08-29] MEDS: TOPROL XL PO SCH ×2 (08:24→21:23)
[2017-08-29] MEDS: ALDACTONE PO SCH (08:24)
[2017-08-29] MEDS: MYCOSTATIN SUSP PO SCH ×4 (08:25→21:23)
[2017-08-29] MEDS: NICODERM PATCH TD SCH (08:25)
[2017-08-29] MEDS: ASPIRIN PO SCH (08:25)
[2017-08-29] MEDS ORDERED: DULCOLAX PR ONE (08:34)
[2017-08-29] MEDS: LANTUS SUBQ SCH (09:14)
[2017-08-29] MEDS: ATIVAN IV PRN (13:25)
[2017-08-29] MEDS: SODIUM CHLORIDE 0.9% INJ SCH (17:17)
[2017-08-29] MEDS: PROTONIX IV SCH (17:17)
[2017-08-30] MEDS: DUONEB (A & A) INH SCH ×3 (03:41→11:37)
[2017-08-30] MEDS: HEPARIN SUBQ SCH (05:07)
[2017-08-30] MEDS ORDERED: LANTUS SUBQ SCH (05:32)
[2017-08-30] MEDS ORDERED: ROCEPHIN 2 GM in NS 50 ML IV ONE (05:32)
[2017-08-30] MEDS: HUMULIN R SUBQ SCH ×2 (06:07→11:13)
[2017-08-30] MEDS ORDERED: FLUZONE QUAD 2017-2018 SYRINGE IM ONE (06:29)
[2017-08-30] MEDS ORDERED: PNEUMOVAX 23 IM ONE (06:43)
[2017-08-30] MEDS ORDERED: INSULIN PEN NEEDLES ONE (08:40)
[2017-08-30] MEDS: MYCOSTATIN SUSP PO SCH (09:14)
[2017-08-30] MEDS: ASPIRIN PO SCH (09:15)
[2017-08-30] MEDS: APRESOLINE PO SCH (09:15)
[2017-08-30] MEDS: ISORDIL PO SCH (09:15)
[2017-08-30] MEDS: ALDACTONE PO SCH (09:15)
[2017-08-30] MEDS: TOPROL XL PO SCH (09:15)
[2017-08-30] MEDS: NICODERM PATCH TD SCH (09:16)
[2017-08-30] MEDS: NORCO-10 PO PRN (10:38)
[2017-08-30 11:12] VITALS: BP 107/51
== END 2017-08-30 13:45 ==
LOC: DIRADM 14:43 → CT 14:43 → 3N 17:11 → ICU 08-19 00:31 → 3S 08-23 11:55
PROVIDERS: ADMIT Internal Medicine; ATTEND Internal Medicine